=== PATIENT | female | born 1970 | race Caucasian/White ===

== ENCOUNTER → 2023-08-06 | Day surgery (SDC) | payer MEDICARE ==
[2023-08-02 13:50] LABS: ANION GAP 12.1 mmol/L (8-16); CREATININE, SERUM 0.91 mg/dL (0.57-1.11); POTASSIUM 4.1 mmol/L (3.5-5.1)
[~2023-08-06] MED LIST: ACETAMINOPHEN 1000 MG/100 ML IV ONE; ATIVAN0.5 MG PO; BUPIVACAINE HCL 0.5% INJ 30 ML VIAL INJ ONE; CEFAZOLIN SODIUM 2 GM ONE; DEXAMETHASONE SOD PHOS INJ 4 MG/ML SDV ONE; DEXTROSE 5% 250ML 250 ML IV ONE; FENTANYL CITRATE/PF 100MCG/2 ML INJ ONE; FEROSUL325 MG PO; LACTATED RINGER'S 1,000 ML ONE; LEVOTHYROXINE50 MCG PO; LIDOCAINE HCL 2% LOCAL INJ 5 ML SDV VIAL INJ ONE; METFORMIN HCL500 MG PO; METOCLOPRAMIDE HCL 10 MG/2ML VIAL ONE; NEOSTIGMINE 1 MG/ML 10ML VIAL ONE; NEURONTIN400 MG PO; ONDANSETRON HCL INJ 2MG/ML 2ML 2 MG/ML VIAL ONE; POTASSIUM CHLO10 ME1 PO; PROPOFOL IV EMULSION 10 MG/ML 20 ML VIAL ONE; SIMVASTATIN20 MG PO
[2023-08-06 12:01] VITALS: TEMP 97.6
[2023-08-06 14:00] VITALS: BP 138/73; PULSE 77; RESP 18; O2SAT 98
== END | disposition home or self-care (01) ==
LOC: OR 08:51
PROVIDERS: ATTEND Podiatrist Foot Surgery
DX: M86.9 Osteomyelitis, unspecified (principal); L89.894 Pressure ulcer of other site, stage 4; M00.9 Pyogenic arthritis, unspecified; E78.5 Hyperlipidemia, unspecified; F41.9 Anxiety disorder, unspecified; F32.A Depression, unspecified; E03.9 Hypothyroidism, unspecified; K52.9 Noninfective gastroenteritis and colitis, unspecified; Z88.1 Allergy status to other antibiotic agents; Z79.84 Long term (current) use of oral hypoglycemic drugs; Z79.899 Other long term (current) drug therapy
CPT/HCPCS: 14040; 28820; 36415 ×2; 76000; 80048; 82948; 87071; 87075; 87205; 88305; 88311; 93005; J0131; J1100; J2001; J2405; J2704; J2710; J2765; J3010; J7070; J7121; V2790; 88304